=== PATIENT | female | born 1985 | race Caucasian/White ===

== ENCOUNTER 2016-12-05 13:42 | Emergency (ER) | payer OTHER ==
--- NOTE | 2016-12-05 15:44 | ER NURSING DOCUMENTATION ---
Nurse's Notes [facility] Name:Marisol Meyer Age:30 yrs Sex:Female :1985 Arrival Date:12/05/2016 Time:13:42 Bed4 Private MD: Diagnosis:Mouth Abscess Presentation: 12/05 13:50 Acuity: NEGRO 3 rs 13:50 Presenting complaint: Patient states: Recent AOM in left and OE in right ear, taking rs amoxicillin, ears are feeling better. Last night she felt like her throat was swelling on right side. The right ear remains slightly uncomfortable and there is an area of swelling approx 3 cm, soft, mobile, nontender. She has not had any itching or rash. Feels slightly SOB when she lies flat. Transition of care: patient was not received from another setting of care. Notified ED Physician of patient's arrival and CC Dr. Jose notified. 13:50 Method Of Arrival: Private Vehicle rs Triage Assessment: 14:17 General: Appears in no apparent distress, comfortable, well developed, well nourished, rs well groomed, Behavior is cooperative, pleasant. Pain: Complains of pain in Slight discomfort in right ear remains. EENT: No deficits noted. Tympanic membrane clear on right ear and left ear. EENT: Ear canal clear on right ear and left ear Throat is clear Cervical nodes enlarged on right. Neuro: No deficits noted. Level of Consciousness is awake, alert, Oriented to person, place, time, event. 14:22 Cardiovascular: Capillary refill < 3 seconds Heart tones S1 S2 present Pulses are 3+ in rs right radial artery and left radial artery Reports shortness of breath when lying flat. Respiratory: No deficits noted. Airway is patent Trachea midline Respiratory effort is even, unlabored, Respiratory pattern is regular, symmetrical, Breath sounds are clear bilaterally. Onset: The symptoms/episode began/occurred today, the patient has mild shortness of breath. GI: No deficits noted. Derm: No deficits noted. Skin is pink, warm & dry. Historical: - Allergies: No known drug Allergies; - Home Meds: 1. Amoxicillin Oral - PMHx: asthma as a child; Born one month premature; pneumothorax at ; - PSHx: lung at ; - Tetanus: unknown. - Ebola Screening: : Patient negative for fever greater than or equal to 101.5 degrees Fahrenheit, and additional compatible Ebola Virus Disease symptoms. Patient denies exposure to infectious person. Patient denies travel to an Ebola-affected area in the 21 days before illness onset. No symptoms or risks identified at this time. . - Immunization history: Unable to Obtain. - Social history: Smoking status: Patient states was never smoker of tobacco. Screenin:00 Infectious Disease Risk None. Abuse screen: Denies threats or abuse. Nutritional rs screening: No deficits noted. Assessment: 14:49 Reassessment: No changes from previously documented assessment. States the "shortness rs of breath" is really more like having to catch her breath after walking, "take a couple deep breaths". . Vital Signs: 14:00 BP 147 / 90; Pulse 108; Resp 20; Temp 97.6; Pulse Ox 94% on R/A; Pain 2/10; rs 14:17 Pulse Ox 91% ; rs 14:45 Pulse 87; Resp 18; Pulse Ox 93% on R/A; rs ED Course: 13:43 Patient arrived in ED. ama 13:50 Notified ED Physician of patient's arrival and chief complaint. Dr. Jose notified. Arm rs band placed on Bed in low position Call Light in Reach HOB Elevated Side rails up x1. Family accompanied patient. 13:52 Jhon Jose MD is Attending Physician. cd 14:03 Allison Peace RN is Primary Nurse. rs 14:11 Triage completed. rs 14:46 Resting quietly. rs 14:46 Pulse Ox - RN Monitoring Only. Door closed. Noise minimized. Verbal reassurance given. rs Administered Medications: No medications were administered Outcome: 15:34 Discharge ordered by . cd 15:43 Discharged to home ambulatory. st 15:43 Condition: stable 15:43 Discharge instructions given to patient, Instructed on discharge instructions, follow up and referral plans. medication usage, Prescriptions given X 1. 15:43 Patient [address] the ED. st 04 13:44 Discharge F/U Call: Spoke with: patient. Overall Care on a scale of 1-10 with 10 ma being the best care, you rate our care as: Other comments: States is beginning to feel better Filled Rx's Signatures: Marivel Simpson RN RN st Stalker, Rachael, RN RN rs Abuso, Melanie, RN RN ma Daley, Chris, MD MD cd Averdick, Andrew Reg Reg ama
--- NOTE | 2016-12-05 15:44 | ER PHYSICIAN DOCUMENTATION ---
Physician Documentation [facility] Name:Marisol Meyer Age:30 yrs Sex:Female :1985 Arrival Date:12/05/2016 Time:13:42 Bed4 Private MD: Jhon Marcum Disposition: 12/05 15:32 Critical Care: not applicable. cd Disposition: 12/05/16 15:34 Discharged to Home/Self Care. Impression: Mouth Abscess. - Condition is Good. - Discharge Instructions: Mononucleosis, Infectious - PHARYNGITIS, Viral. - Prescriptions for Clindamycin HCl 150 mg Oral - take 1 capsule by ORAL route every 6 hours for 7 days; 28 capsule. - Medical Reconciliation form form. - Follow up: Private Physician; When: 7 - 10 days; Reason: Recheck today's complaints, Continuance of care. - Problem is new. - Symptoms are unchanged. HPI: 14:00 This 30 yrs old Female presents to ER via Private Vehicle with complaints of cd mouth swelling and Breathing Difficulty. 14:00 The patient presents with redness, swelling. The problem is located in the right aspect cd of posterior pharynx at the base of the tongue on the right. Onset: The symptom(s)/episode began/occurred acutely, today. Duration: The symptoms are continuous. Associated signs and symptoms: Pertinent positives: dysphagia, redness in area, swelling. Severity of symptoms: At their worst the symptoms were mild, in the emergency department the symptoms are unchanged. Patient reports having a recent Acute OM and OE and was treated with Amoxicillin. Historical: - Allergies: No known drug Allergies; - Home Meds: 1. Amoxicillin Oral - PMHx: asthma as a child; Born one month premature; pneumothorax at ; - PSHx: lung at ; - Tetanus: unknown. - Ebola Screening: : Patient negative for fever greater than or equal to 101.5 degrees Fahrenheit, and additional compatible Ebola Virus Disease symptoms. Patient denies exposure to infectious person. Patient denies travel to an Ebola-affected area in the 21 days before illness onset. No symptoms or risks identified at this time. . - Immunization history: Unable to Obtain. - Social history: Smoking status: Patient states was never smoker of tobacco. ROS: 14:15 Constitutional: Negative for chills, fever, poor PO intake. cd 14:15 ENT: Positive for sore throat, pain and swelling at the base of right tongue, Negative for rhinorrhea, sinus congestion, sinus pain. 14:15 Neck: Negative for acute changes. Exam: 14:15 Head/Face: Normocephalic, atraumatic. cd 14:15 Eyes: Pupils equal round and reactive to light, extra-ocular motions intact. Lids and cd lashes normal. Conjunctiva and sclera are non-icteric and not injected. Cornea within normal limits. Periorbital areas with no swelling, redness, or edema. 14:15 Constitutional: The patient appears alert, awake, non-diaphoretic, non-toxic. 14:15 ENT: Ear canal(s): are normal, TM's: are normal, Mouth: Oral mucosa: dry, Posterior pharynx: Airway: normal, Tonsils: are normal in appearance, swelling, that is mild, base of right tongue, exudate, is not appreciated, Dental exam: normal. 14:15 Neck: mild swelling under the right angle of the mandible, ? lymphadentitis. Vital Signs: 14:00 BP 147 / 90; Pulse 108; Resp 20; Temp 97.6; Pulse Ox 94% on R/A; Pain 2/10; rs 14:17 Pulse Ox 91% ; rs 14:45 Pulse 87; Resp 18; Pulse Ox 93% on R/A; rs MDM: 13:52 Patient medically screened. cd 15:30 Data reviewed: vital signs, nurses notes, old medical records, and as a result, I will cd discharge patient, administer antibiotics Cleocin. Data interpreted: Pulse oximetry: on room air is 93 %. Interpretation: normal. Counseling: I had a detailed discussion with the patient and/or guardian regarding: the historical points, exam findings, and any diagnostic results supporting the discharge/admit diagnosis, the need for outpatient follow up, for a recheck, with the patient's primary care provider, to return to the emergency department if symptoms worsen or persist or if there are any questions or concerns that arise at home. Dispensed Medications: No medications were administered Signatures: Marivel Simpson RN RN st Stalker, Rachael, RN RN rs Daley, Chris, MD MD cd
== END 2016-12-05 15:43 | disposition home or self-care (01) ==
LOC: ER 13:42
DX: K12.2 Cellulitis and abscess of mouth (principal); E86.0 Dehydration
CPT/HCPCS: 99282